=== PATIENT | female | born 1950 | race African-American/Black ===

== ENCOUNTER 2017-03-11 18:42 | Emergency (ER) | payer OTHER ==
[2017-03-11 18:49] VITALS: BP 165/89; PULSE 93; BMI 22.6
[2017-03-11] MEDS ORDERED: AMOXICILLIN 500 MG CAPSULE (FP) PO ONE (19:08)
[2017-03-11] MEDS ORDERED: IBUPROFEN 600 MG TABLET (FP) PO ONE (19:08)
[2017-03-11] MEDS ORDERED: IBUPROFEN 400 MG TABLET (FP) PO ONE (19:13)
[2017-03-11] MEDS ORDERED: AMOX TR/POT CLAV 500MG/125MG TABLETS (FP) ONE (19:13)
--- NOTE | 2017-03-11 19:14 | PDOC ---
History of Present Illness - General Chief Complaint: Toothache Stated Complaint: PAIN Time Seen by Provider: 03/11/17 19:03 History Source: Patient Exam Limitations: No Limitations - History of Present Illness Initial Comments: 03/11/17 19:09 c/o toothache for one month has apt 03/18 with her dentist. no fever no chills. Past History - Past Medical History Allergies/Adverse Reactions: Allergies Allergy/AdvReac Type Severity Reaction Status Date / Time No Known Allergies Allergy Verified 03/11/17 18:43 Home Medications: Ambulatory Orders Mirtazapine [Remeron -] 15 mg PO DAILY #30 tablet 02/11/17 Cholecalciferol (Vitamin D3) [Vitamin D3 -] 1,000 unit PO DAILY #30 tab Efavirenz/Emtricitab/Tenofovir [Atripla Tablet -] 1 tab PO DAILY #30 tab Folic Acid - 1 mg PO DAILY #30 tablet 03/04/17 Metoprolol Succinate [Toprol XL -] 100 mg PO DAILY #30 tab.sr.24h 03/04/17 Metoprolol Tartrate [Lopressor -] 25 mg PO HS #30 tablet 03/04/17 Spironolactone [Aldactone -] 25 mg PO DAILY #30 tablet 03/04/17 Telmisartan [Micardis] 40 mg PO DAILY #30 tablet 03/04/17 Amoxicillin - [Amoxicillin 875mg Tablet -] 875 mg PO BID #14 tab 03/11/17 Ibuprofen 800 mg PO TID PRN #20 tablet 03/11/17 Anemia: Yes Asthma: No Cancer: No Cardiac Disorders: No CVA: No COPD: No CHF: No Dementia: No Diabetes: No GI Disorders: No Disorders: No HTN: Yes Hypercholesterolemia: No Liver Disease: No Seizures: No Thyroid Disease: No - Suicide/Smoking/Psychosocial Hx Smoking Status: No Smoking History: Never smoked Have you smoked in the past 12 months: No Number of Cigarettes Smoked Daily: 0 Information on smoking cessation initiated: No Hx Alcohol Use: No Drug/Substance Use Hx: No Substance Use Type: None Hx Substance Use Treatment: No *Physical Exam - Vital Signs Last Vital Signs Temp Pulse Resp BP Pulse Ox 93 H 18 165/89 100 03/11/17 18:44 03/11/17 18:44 03/11/17 18:44 03/11/17 18:44 - Physical Exam General Appearance: Yes: Nourished, Appropriately Dressed HEENT: positive: EOMI, JAMEE, Other (lower right side tooth#27 with decay surrounding erythema edema at the root of the tooth , no palpable abscess) Neck: positive: Supple Respiratory/Chest: positive: Lungs Clear, Normal Breath Sounds Medical Decision Making - Medical Decision Making 03/11/17 19:12 cc: tooth infection for one month getting worse has apt 03/[address] on antibioitcs and motrin for pain *DC/Admit/Observation/Transfer Diagnosis at time of Disposition: Tooth infection - Discharge Dispostion Disposition: HOME Condition at time of disposition: Good - Prescriptions Prescriptions: Amoxicillin - [Amoxicillin 875mg Tablet -] 875 mg PO BID #14 tab Ibuprofen 800 mg PO TID PRN #20 tablet PRN Reason: Pain - Referrals Referrals: Kalyn Chang MD [Primary Care Provider] - - Patient Instructions Additional Instructions: gargle with warm salt water 4-5 times a day take the medications as prescribed follow with the dentist as planned - Post Discharge Activity
== END 2017-03-11 19:15 | disposition home or self-care (01) ==
LOC: JER 18:42 → JERFT 18:42
DX: K08.89 Other specified disorders of teeth and supporting structures (principal); K02.9 Dental caries, unspecified; I10 Essential (primary) hypertension
CPT/HCPCS: 99281-25